=== PATIENT | male | born 1980 | race Caucasian/White ===

== ENCOUNTER 2017-05-21 06:54 | Emergency (ER) | payer OTHER ==
[~2017-05-21] VITALS: Ht 172.7 cm; Wt 72.7 kg
[2017-05-21] MEDS ORDERED: MOTRIN800 MG PO (07:29)
[2017-05-21 08:50] VITALS: BP 119/92
== END 2017-05-21 08:52 | disposition home or self-care (01) | DRG 552 ==
LOC: ED 06:54
DX: S13.9XXA Sprain of joints and ligaments of unspecified parts of neck, initial encounter (principal); S43.402A Unspecified sprain of left shoulder joint, initial encounter; S60.512A Abrasion of left hand, initial encounter; V49.40XA Driver injured in collision with unspecified motor vehicles in traffic accident, initial encounter